=== PATIENT | male | born 1995 | race Two or more races ===

== ENCOUNTER 2019-01-03 08:32 | Emergency (ER) | payer OTHER ==
[2019-01-03 08:44] VITALS: BP 135/79; PULSE 89; TEMP 98; BMI 20.1
[2019-01-03] MEDS ORDERED: CLINDAMYCIN HCL 300 MG CAPSULE PO ONE (08:51)
[2019-01-03] MEDS ORDERED: CLINDAMYCIN HCL 150 MG CAPSULE (FP) ONE (08:52)
--- NOTE | 2019-01-03 09:00 | PDOC ---
History of Present Illness - General Chief Complaint: Abscess Boil Stated Complaint: FEVER Time Seen by Provider: 01/03/19 08:47 History Source: Patient Exam Limitations: Clinical Condition - History of Present Illness Initial Comments: 01/03/19 09:23 Patient with no significant past medical history present with complaint of 3- day history of redness to lateral aspect of left forearm and a bump to back of head. Patient report redness to forearm started as insect bite and skin has been getting right. Patient reports tactile fever. Patient did not take anything for fever. Denies numbness or tingling sensation. Denies any other symptoms Timing/Duration: reports: other (3 days) Past History - Past Medical History Allergies/Adverse Reactions: Allergies Allergy/AdvReac Type Severity Reaction Status Date / Time No Known Allergies Allergy Verified 01/03/19 08:37 Home Medications: Ambulatory Orders Cephalexin Monohydrate [Keflex -] 500 mg PO BID 7 Days #14 capsule 01/03/19 Mupirocin Ointment [Bactroban 2% Ointment -] 1 applic TP BID #1 tube 01/03/19 Sulfamethoxazole/Trimethoprim [Bactrim Ds -] 1 tab PO BID #14 tablet 01/03/19 COPD: No - Immunization History Immunization Up to Date: (Doesn't know) - Psycho Social/Smoking Cessation Hx Smoking Status: No Smoking History: Never smoked Have you smoked in the past 12 months: No Number of Cigarettes Smoked Daily: 0 Hx Alcohol Use: No Drug/Substance Use Hx: No Substance Use Type: None Review of Systems - Review of Systems Able to Perform ROS?: Yes Is the patient limited Irish proficient: No Constitutional: No: Chills, Fever, Malaise HEENTM: No: Symptoms Reported Respiratory: No: Symptoms reported, See HPI, Cough, Orthopnea, Shortness of Breath, SOB with Exertion, SOB at Rest, Stridor, Wheezing, Productive cough, Hemoptysis, Other Cardiac (ROS): No: Symptoms Reported, See HPI, Chest Pain, Edema, Irregular Heart Rate, Lightheadedness, Palpitations, Syncope, Chest Tightness, Other ABD/GI: No: Nausea, Vomiting Musculoskeletal: No: Symptoms Reported Integumentary: Yes: Symptoms Reported, See HPI, Erythema (left forearm redness) , Lumps (back of head) Neurological: No: Symptoms reported, Numbness, Paresthesia, Weakness, Dizziness All Other Systems: Reviewed and Negative *Physical Exam - Vital Signs Last Vital Signs Temp Pulse Resp BP Pulse Ox 98 F 89 18 135/79 100 01/03/19 08:37 01/03/19 08:37 01/03/19 08:37 01/03/19 08:37 01/03/19 08:37 - Physical Exam Comments: 01/03/19 09:26 GENERAL: Well developed, well nourished. Awake and alert. No acute distress. HEENT: 1 cm area of hard induration with vesicles consistent with skin excoriation from shaving to occiput of head. No skin erythema. Normocephalic, atraumatic. PERRLA, EOMI. No conjunctival pallor. Sclera are non-icteric. Moist mucous membranes. Oropharynx is clear. NECK: Supple. Full ROM. PULMONARY: No evidence of respiratory distress. MUSCULOSKELETAL Normal range of motion at all joints. SKIN: Warm and dry. Normal capillary refill. 1 cm area of hard induration with vesicles consistent with skin excoriation from shaving to occiput of head. No skin erythema. 1 mm area of insect bite sera with 3 cm area of surrounding skin erythema consistent with cellulitis to the lateral aspect of left forearm. No open wound or drainage from site. NEUROLOGICAL: Alert, awake, appropriate. Gait is normal without ataxia. PSYCHIATRIC: Cooperative. Good eye contact. Appropriate mood General Appearance: Yes: Nourished, Appropriately Dressed. No: Apparent Distress ED Treatment Course - Medications Given in the ED: ED Medications Discontinued Medications Generic Name Dose Route Start Last Admin Trade Name Alq PRN Reason Stop Dose Admin Clindamycin HCl 300 mg 01/03/19 08:51 01/03/19 08:53 Cleocin - PO 01/03/19 08:52 300 mg ONCE ONE Administration Medical Decision Making - Medical Decision Making 01/03/19 09:24 Patient with no significant past medical history present with complaint of 3- day history of redness to lateral aspect of left forearm and a bump to back of head. Patient report redness to forearm started as insect bite and skin has been getting right. Patient reports tactile fever. Patient did not take anything for fever. Denies numbness or tingling sensation. Denies any other symptoms Exam significant for 1 mm area of hard induration consistent with insect bite with 4 cm area of skin erythema to lateral aspect of left forearm. No drainage from bite site. No streaking of redness up left arm. Single 1 cm hard induration to the left side of occiput with no skin erythema. Sepsis likely cellulitis of left forearm from insect bite with bumps from shaving to occiput. Clindamycin 300 mg p.o. one-time ordered for cellulitis. Patient will be discharged home on Bactrim and Keflex antibiotic for a week with topical Bactroban with advised to follow-up in 2 days for reassessment. Area of cellulitis marked with marking pen. Patient stable for discharge Discharge - Discharge Information Problems reviewed: Yes Clinical Impression/Diagnosis: Cellulitis of left forearm, Bumps on skin Bug bite Qualifiers: Encounter type: initial encounter Qualified Code(s): W57.XXXA - Bitten or stung by nonvenomous insect and other nonvenomous arthropods, initial encounter Condition: Stable Disposition: HOME - Admission No - Additional Discharge Information Prescriptions: Cephalexin Monohydrate [Keflex -] 500 mg PO BID 7 Days #14 capsule Mupirocin Ointment [Bactroban 2% Ointment -] 1 applic TP BID #1 tube Sulfamethoxazole/Trimethoprim [Bactrim Ds -] 1 tab PO BID #14 tablet - Follow up/Referral Referrals: Carline Willard MD [Staff Physician] - - Patient Discharge Instructions Patient Printed Discharge Instructions: DI for Cellulitis -- Adult Additional Instructions: Take prescribed medications as prescribed. Apply prescribed cream to left forearm and back of head twice a day until healed. Come back to ED in 2 days to recheck the skin [place] los medicamentos recetados segn lo recetado. Aplique la crema recetada en el antebrazo prashant y la parte posterior de la china dos veces al da hasta que sane. Regrese a ED en 2 barraza para volver a revisar la piel Print Language: SLOVENIAN - Post Discharge Activity Work/Back to School Note: Back to Work
== END 2019-01-03 09:43 | disposition home or self-care (01) ==
LOC: JERFT 08:32
DX: S50.862A Insect bite (nonvenomous) of left forearm, initial encounter (principal); L03.114 Cellulitis of left upper limb; W57.XXXA Bitten or stung by nonvenomous insect and other nonvenomous arthropods, initial encounter; Y93.89 Activity, other specified; Y92.89 Other specified places as the place of occurrence of the external cause; Y99.8 Other external cause status; L02.811 Cutaneous abscess of head [any part, except face]
CPT/HCPCS: 99282-25

== ENCOUNTER 2019-01-04 09:35 | Inpatient (IN) | payer OTHER ==
[2019-01-04 10:50] LABS: BASO % 0.2 % (0-2.0); EOS % 0.2 % (0-4.5); HEMOGLOBIN 15.9 GM/dL (11.7-16.9); LYMPH % 6.1 % (8-40); MCH 29.2 pg (25.7-33.7); MCHC 33.8 g/dl (32.0-35.9); MEAN CELL VOLUME 86.5 fl (80-96); MEAN PLT VOLUME 9.1 fl (7.5-11.1); MONO % 7.6 % (3.8-10.2); NEUT % 85.9 % (42.8-82.8); PLATELET COUNT 222 K/MM3 (134-434); RBC 5.43 M/mm3 (4.00-5.60); WHITE BLOOD COUNT 14.1 K/mm3 (4.0-10.0)
[2019-01-04] MEDS ORDERED: VANCOMYCIN 1 GM in D5W (PRE-DOCKED) 1,000 MG/250 ML IVPB ONE (10:50)
--- NOTE | 2019-01-04 11:00 | PDOC ---
History of Present Illness - General Chief Complaint: Edema Stated Complaint: RT ARM SWOLLEN, 2nd visit Time Seen by Provider: 01/04/19 09:37 History Source: Patient, Old Records Exam Limitations: No Limitations - History of Present Illness Initial Comments: 01/04/19 10:55 23 yo M w/ no sig pmhx comes in c/o left forearm worsening cellulitis, fever, chills, nausea, loss of appetite. He was in the ED yesterday, was prescribed keflex, bactrim which he has been taking. Last dose 8am today. The redness has gone past the circumscribed area. Also c/o a bump to the back of the head which has not gotten worse, (+) h/o abscesses in the past. Denies h/o diabetes. Past History - Past Medical History Allergies/Adverse Reactions: Allergies Allergy/AdvReac Type Severity Reaction Status Date / Time No Known Allergies Allergy Verified 01/04/19 09:39 Home Medications: Ambulatory Orders Cephalexin Monohydrate [Keflex -] 500 mg PO BID 7 Days #14 capsule 01/03/19 Mupirocin Ointment [Bactroban 2% Ointment -] 1 applic TP BID #1 tube 01/03/19 Sulfamethoxazole/Trimethoprim [Bactrim Ds -] 1 tab PO BID #14 tablet 01/03/19 COPD: No Other medical history: boils - Immunization History Immunization Up to Date: (Doesn't know) - Psycho Social/Smoking Cessation Hx Smoking Status: No Smoking History: Never smoked Have you smoked in the past 12 months: No Number of Cigarettes Smoked Daily: 0 Information on smoking cessation initiated: No Hx Alcohol Use: No Drug/Substance Use Hx: No Substance Use Type: None Review of Systems - Review of Systems Able to Perform ROS?: Yes Constitutional: No: Chills, Fever, Malaise, Night Sweats HEENTM: No: Eye Pain, Recent change in vision, Throat Pain Respiratory: No: Cough, Shortness of Breath Cardiac (ROS): No: Chest Pain, Palpitations, Chest Tightness ABD/GI: Yes: Nausea. No: Diarrhea, Vomiting, Abdominal cramping : No: Dysuria, Hematuria Musculoskeletal: No: Back Pain Integumentary: No: Rash Neurological: No: Headache, Numbness, Dizziness Endocrine: No: Unexplained Weight Loss *Physical Exam - Vital Signs Last Vital Signs Temp Pulse Resp BP Pulse Ox 98.3 F 89 19 133/88 99 01/04/19 09:37 01/04/19 09:37 01/04/19 09:37 01/04/19 09:37 01/04/19 09:37 - Physical Exam General Appearance: Yes: Nourished. No: Apparent Distress HEENT: positive: GRABIEL, Normal ENT Inspection, Normal Voice. negative: Pale Conjunctivae, Scleral Icterus (R), Scleral Icterus (L) Neck: positive: Supple. negative: Decreased range of motion, Tender midline Respiratory/Chest: positive: Lungs Clear, Normal Breath Sounds. negative: Respiratory Distress, Accessory Muscle Use Cardiovascular: positive: Regular Rhythm, Regular Rate Gastrointestinal/Abdominal: positive: Normal Bowel Sounds, Soft. negative: Tender Musculoskeletal: positive: Normal Inspection. negative: CVA Tenderness, Decreased Range of Motion Extremity: positive: Normal Capillary Refill, Normal Inspection, Normal Range of Motion, Other (L forearm with a cm area of induration and tenderness with a central head, no fluctuance, (+)surrounding erythema and swelling extending beyond [place] up to the antecubital fossa and down to the proximal palm. No streaking beyond elbow. FROM elbow and wrist with 5/5 strength). negative: Pedal Edema Integumentary: positive: Normal Color, Dry. negative: Jaundice, Rash Neurologic: positive: Fully Oriented, Alert, Normal Mood/Affect ED Treatment Course - LABORATORY CBC & Chemistry Diagram: 01/04/19 10:35 01/04/19 10:35 - ADDITIONAL ORDERS Additional order review: 01/04/19 10:35 RBC 5.43 MCV 86.5 MCHC 33.8 RDW 13.0 MPV 9.1 Neutrophils % 85.9 H Lymphocytes % 6.1 L D Monocytes % 7.6 D Eosinophils % 0.2 D Basophils % 0.2 Medical Decision Making - Medical Decision Making 01/04/19 11:15 23 yo M w/ cellulitis, fever, chills, loss of appetite. On antibiotics for 24 hrs, worsening. Will line and lab, give vancomycin and reassess 01/04/19 16:42 Pt admited for IV antibotics. Resident aware Discharge - Discharge Information Problems reviewed: Yes Clinical Impression/Diagnosis: Cellulitis Qualifiers: Site of cellulitis: extremity Site of cellulitis of extremity: upper extremity Laterality: left Qualified Code(s): L03.114 - Cellulitis of left upper limb - Follow up/Referral - Patient Discharge Instructions - Post Discharge Activity
[2019-01-04] MEDS ORDERED: VANCOMYCIN 1 GRAM (PRE-DOCKED) 1,000 MG/250 ML BAG IVPB ONE (11:02)
[2019-01-04 11:22] LABS: ALBUMIN 4.7 g/dl (3.4-5.0); BILIRUBIN,TOTAL 1.3 mg/dL (0.2-1); CREATININE 0.9 mg/dL (0.55-1.3); POTASSIUM 3.6 mmol/L (3.5-5.1); TOT PROT 8.1 g/dl (6.4-8.2)
[2019-01-04] MEDS ORDERED: ACETAMINOPHEN 325 MG TABLET (FP) PO PRN (14:49)
--- NOTE | 2019-01-04 14:51 | HP ---
<JoselofrenchGume - Last Filed: 01/04/19 15:28> CHIEF COMPLAINT: Arm Pain and redness PCP: None HISTORY OF PRESENT ILLNESS: 23yo M with no medical history who reports having worsening arm pain and redness. Pt was previously here in ED for same complaint one day prior and was given PO Keflex and Bactrim for his cellulitis. Pt's cellulitis began 2-3 days ago after he noticed bite dalton on his arm and his head. Pt reports the bites did not itch him and he continued his daily routines. Around yesterday he noticed increased redness with no fevers, arm pain, or worsening range of motion. He visited the ER for further evaluation and when sent home they marked his rash and told him if it got worse to come back. Pt noticed this morning he had some arm pain and noticed the redness became more severe. Pt previously had an abscess formation about [address] from a cut he sustained, however was never told he had any specific bacteria like MRSA or Pseudomonas. Pt denies any diabetes or becoming sick frequently as a child. Pt denies any fever/chills, cough, rhinorrhea, constitutional symptoms, shortness of breath, palpitations, abdominal pain, dysuria, polyuria, diarrhea, weakness, tingling/numbness. Recent Travel: Travels to [facility] (hasn't been in 6 mo) PAST MEDICAL HISTORY: None PAST SURGICAL HISTORY: None Social History: Smoking: Denies Alcohol: Denies Drugs: Denies Family history: Noncontributory; no hx of immunodeficiencies Allergies No Known Allergies Allergy (Verified 01/04/19 09:39) HOME MEDICATIONS: Home Medications Medication Instructions Recorded Cephalexin Monohydrate [Keflex -] 500 mg PO BID 7 Days #14 capsule 01/03/19 Mupirocin Ointment [Bactroban 2% 1 applic TP BID #1 tube 01/03/19 Ointment -] Sulfamethoxazole/Trimethoprim 1 tab PO BID #14 tablet 01/03/19 [Bactrim Ds -] REVIEW OF SYSTEMS As per HPI PHYSICAL EXAMINATION Vital Signs - 24 hr 01/04/19 01/04/19 09:37 13:50 Temperature 98.3 F 97.6 F Pulse Rate 89 Pulse Rate [ 85 Right Radial] Respiratory 19 18 Rate Blood Pressure 133/88 Blood Pressure 129/78 [Left Arm] O2 Sat by Pulse 99 98 Oximetry (%) GENERAL: NAD, awake, alert, and fully oriented HEAD: no hair infestation, singular wheal without any TTP, surrounding erythema on posterior head, no structural abnormalities. EENT: EOM, MARIBELL, MMM, no buccal mucosa abnoramlities Neck: No lymphadenopathy LUNGS: CTA bilaterally. No wheezes, and no crackles. No accessory muscle use. HEART: RRR, normal S1 and S2 without murmur ABDOMEN: Soft, NT/ND, normoactive bowel sounds, no guarding, no rebound MUSCULOSKELETAL: No CVA tenderness. UPPER EXTREMITIES: 2+ radial pulses b/l, cap refill <2sec, Nate test normal, extensive erythema from L wrist to elbow 1 in from being circumferential. TTP + , area of induration around original wheal without any fluctuance appreciated. compartments of arm soft. ROM of wrist and elbow normal. LOWER EXTREMITIES: No lower extremity edema, no calf tenderness NEUROLOGICAL: Nonfocal. Normal speech. Normal gait. PSYCHIATRIC: Cooperative. Good eye contact. Appropriate mood and affect. SKIN: Warm, dry, see EXT exam and HEAD above. No insect bite dalton inbetween hands, tattoos (distant history) without any puncture dalton hidden Laboratory Results - last 24 hr 01/04/19 01/04/19 01/04/19 10:35 10:35 10:36 WBC 14.1 H RBC 5.43 Hgb 15.9 Hct 47.0 MCV 86.5 MCH 29.2 MCHC 33.8 RDW 13.0 Plt Count 222 MPV 9.1 Absolute Neuts (auto) 12.1 H Neutrophils % 85.9 H Lymphocytes % 6.1 L D Monocytes % 7.6 D Eosinophils % 0.2 D Basophils % 0.2 Nucleated RBC % 0 Sodium 138 Potassium 3.6 Chloride 100 Carbon Dioxide 30 Anion Gap 8 BUN 6.0 L Creatinine 0.9 Est GFR (CKD-EPI)AfAm 137.10 Est GFR (CKD-EPI)NonAf 118.29 Random Glucose 94 Lactic Acid 1.2 Calcium 10.0 Total Bilirubin 1.3 H AST 15 ALT 14 Alkaline Phosphatase 84 Total Protein 8.1 Albumin 4.7 ASSESSMENT/PLAN: Extensive cellulitis with failure of outpatient therapy Leukocytosis R/o abscess formation Hyperbilirubinemia --Vancomycin given in ED --Add Zosyn 3.375mg q8h for broad coverage --CT Upper extremity with contrast to r/o abscess and any fascial involvement --ID consultation ordered --Marv line of current cellulitis to see worsening vs. improvement --Tylenol PRN for any pain or fever --HIV 4th gen ordered, ESR, CRP can be added on --A1c ordered for tomorrow's labs --Will fractionate bilirubin --If primarily direct will have to RUQ U/S for CBD abnormalities --Utox ordered FEN: Fluids: PO encouraged; bolus if needed Electrolyte abnormalities: None Nutrition: Regular diet PPX: DVT - Early ambulation GI - Not indicated Dispo: Admit M/S Case discussed with Dr. Sandra Alcazar, DO - IM PGY-3 Visit type - Emergency Visit Emergency Visit: Yes ED Registration Date: 01/04/19 Care time: The patient presented to the Emergency Department on the above date and was hospitalized for further evaluation of their emergent condition. - New Patient This patient is new to me today: Yes Date on this admission: 01/04/19 - Critical Care Critical Care patient: No ATTENDING PHYSICIAN STATEMENT I saw and evaluated the patient. I reviewed the resident's note and discussed the case with the resident. I agree with the resident's findings and plan as documented. SUBJECTIVE: OBJECTIVE: ASSESSMENT AND PLAN: <Antonio Flores - Last Filed: 01/06/19 11:11> CHIEF COMPLAINT: Cellulitis Seen and examined with resident; agree with historical information and findings as documented and personally verified flowers features; in addition personally reviewed all labs and diagnostics and VS and discussed at length with resident team and consulting services. He has cellulitis with history of bug bite with ? tick exposure but no s/s RMSF , Lyme, etc. Stable and not toxic appearing with purulent cellulitis without features of nec fasc or compartment syndrome. Imaging pending (CT) with sgy and ID consults pending. Appreciate expert management. Further managment per resident note. Adamently denies IVDU, risk factors for MRSA, or prior infections No family history of immunocompromise, etc. HOME MEDICATIONS: Home Medications Medication Instructions Recorded Cephalexin Monohydrate [Keflex -] 500 mg PO BID 7 Days #14 capsule 01/03/19 Mupirocin Ointment [Bactroban 2% 1 applic TP BID #1 tube 01/03/19 Ointment -] Sulfamethoxazole/Trimethoprim 1 tab PO BID #14 tablet 01/03/19 [Bactrim Ds -] REVIEW OF SYSTEMS 10 sys ROS done and negative aside from HPI PHYSICAL EXAMINATION VS reviewed per resident note and EMR GENERAL: Awake, alert, and fully oriented, in no acute distress. HEAD: Normal with no signs of trauma. EYES: Pupils equal, round and reactive to light, extraocular movements intact, sclera anicteric, conjunctiva clear. No lid lag. EARS, NOSE, THROAT: Ears normal, nares patent, oropharynx clear without exudates. Moist mucous membranes. NECK: Normal range of motion, supple without lymphadenopathy, JVD, or masses. LUNGS: Breath sounds equal, clear to auscultation bilaterally. No wheezes, and no crackles. No accessory muscle use. HEART: Regular rate and rhythm, normal S1 and S2 without murmur, rub or gallop. ABDOMEN: Soft, nontender, not distended, normoactive bowel sounds, no guarding, no rebound, no masses. No hepatomegaly or splenomegaly. MUSCULOSKELETAL: Normal range of motion at all joints. No bony deformities or tenderness. No CVA tenderness. UPPER EXTREMITIES: 2+ pulses, warm, well-perfused. No cyanosis. No clubbing. No peripheral edema. SKIN: Warm, dry, normal turgor, no rashes or lesions noted, normal capillary refill. Cellulitic changes with dime to quarter sized area of fluctuance with surrounding cellulitis; dermarcated with surgical marker. Painful to palpation with no drainage. No target lesions, etc. Imaging pending Micro Pending Denies MRSA hx, no IVDU ASSESSMENT/PLAN: Patient presents with cellulitis secondary to likely bug bite; followed by ID and sgy. Micro pending; on broad coverage. Problems include: -Acute cellulitis (Failed OP tx with indicated abx with speading redness and worsening pain with leukocytosis evident) -Mild hyperbilirubinemia (monitor CMP, fractionate and check US if increases) Full Code ATTENDING PHYSICIAN STATEMENT I saw and evaluated the patient. I reviewed the resident's note and discussed the case with the resident. I agree with the resident's findings and plan as documented. SUBJECTIVE: OBJECTIVE: ASSESSMENT AND PLAN:
[2019-01-04] MEDS ORDERED: PIPERACILLIN/TAZOB 3.375 GM 3.375 GM in DEXTROSE 5%-WATER - 50 ML IVPB SCH (18:00)
[2019-01-04] MEDS ORDERED: DEXTROSE 5%-WATER - 50 ML IVPB ONE (18:04)
[2019-01-04] MEDS ORDERED: PIPERACILLIN/TAZOBACTAM 3.375 GM VIAL IVPB ONE (18:04)
[2019-01-04 18:28] VITALS: BMI 19.7
[2019-01-04] MEDS: PIPERACILLIN/TAZOB 3.375 GM 3.375 GM in DEXTROSE 5%-WATER - 50 ML IVPB SCH (18:53)
[2019-01-04 21:17] LABS: COCAINE, UR NEGATIVE ng/ml (CUTOFF=300); METHADONE, UR NEGATIVE ng/ml (CUTOFF=300); OPIATES, URI NEGATIVE ng/ml (CUTOFF=300); PHENCYCLIDINE,URINE NEGATIVE ng/ml (CUTOFF=25); URINE AMPHETAMINES NEGATIVE ng/ml (CUTOFF=500); URINE BARBITURATES NEGATIVE ng/ml (CUTOFF=200); URINE BENZODIAZEPINES NEGATIVE ng/ml (CUTOFF=200)
[2019-01-05] MEDS ORDERED: DEXTROSE 5%-WATER - 50 ML IVPB ONE ×3 (01:09→17:58)
[2019-01-05] MEDS ORDERED: PIPERACILLIN/TAZOBACTAM 3.375 GM VIAL IVPB ONE ×3 (01:09→17:58)
[2019-01-05] MEDS: PIPERACILLIN/TAZOB 3.375 GM 3.375 GM in DEXTROSE 5%-WATER - 50 ML IVPB SCH ×4 (01:57→18:05)
--- NOTE | 2019-01-05 07:34 | CONSULT ---
- Consultation REQUESTING PROVIDER: CONSULT REQUEST: We have been asked to surgically evaluate this patient for left arm abscess. PCP:Antonio Flores MD HISTORY OF PRESENT ILLNESS: CHIEF COMPLAINT: Arm Pain and redness PCP: None HISTORY OF PRESENT ILLNESS: 23yo M with no medical history who reports having worsening arm pain and redness. Pt was previously here in ED for same complaint one day prior and was given PO Keflex and Bactrim for his cellulitis. Pt's cellulitis began 2-3 days ago after he noticed what looked like insect bite dalton on his arm and his head. Patient states hes had this before and they have resolved on their own. Pt reports the bites did not itch but he experiences generalized itching frequently. On 01/03/19 (Two days ago) he noticed increased redness with no fevers, arm pain, or worsening range of motion. He visited the ER for further evaluation and when sent home they marked his rash and told him if it got worse to come back. Pt noticed yesterday morning he had some arm pain and noticed the redness became more severe. Pt previously had an abscess formation about [address] from a cut he sustained, however was never told he had any specific bacteria like MRSA or Pseudomonas. Pt denies any diabetes or becoming sick frequently as a child. Pt denies any fever/chills, cough, rhinorrhea, constitutional symptoms, shortness of breath, palpitations, abdominal pain, dysuria, polyuria, diarrhea, weakness, tingling/numbness. Recent Travel: Travels to [facility] (hasn't been in 6 mo) PAST MEDICAL HISTORY: None PAST SURGICAL HISTORY: None Social History: Smoking: Denies Alcohol: Denies Drugs: Denies Family history: Noncontributory; no hx of immunodeficiencies Allergies No Known Allergies Allergy (Verified 01/04/19 09:39) HOME MEDICATIONS: Home Medications Medication Instructions Recorded Cephalexin Monohydrate [Keflex -] 500 mg PO BID 7 Days #14 capsule 01/03/19 Mupirocin Ointment [Bactroban 2% 1 applic TP BID #1 tube 01/03/19 Ointment -] Sulfamethoxazole/Trimethoprim 1 tab PO BID #14 tablet 01/03/19 [Bactrim Ds -] REVIEW OF SYSTEMS As per HPI PHYSICAL EXAMINATION Vital Signs Temp 98.5 F 01/05/19 05:00 Pulse 83 01/05/19 05:00 Resp 20 01/05/19 05:00 BP 126/68 01/05/19 05:00 Pulse Ox 100 01/04/19 21:00 Intake & Output 01/04/19 01/04/19 01/05/19 11:59 23:59 11:59 Intake Total 500 50 Balance 500 50 Weight 145 lb 122 lb 4 oz Intake: IVPB 50 50 Oral 450 Other: Voiding Method Toilet # Unmeasured Voids Void 1 Height 5 ft 6 in 5 ft 6 in Body Mass Index (BMI) 23.3 19.7 Weight Measurement Method Standing Scale Weight Measurement Method Est/Stated by Patient CBC, BMP 01/04/19 10:35 01/04/19 10:35 GENERAL: NAD, awake, alert, and fully oriented HEAD: no hair infestation, singular wheal without any TTP, surrounding erythema at left occipital area, no d/c, no structural abnormalities. LUNGS: No auditory wheezes, unlabored resp on RA, No accessory muscle use. MUSCULOSKELETAL: moving all extremities without limitation. UPPER EXTREMITIES: 2+ radial pulses b/l, cap refill <2sec, extensive erythema from L wrist to elbow 1 in from being circumferential. TTP +, area of induration around original wheal on volar surface at mid forearm, without any fluctuance appreciated, no d/c. small scab at center. compartments of arm soft. ROM of wrist and elbow normal. LOWER EXTREMITIES: No lower extremity edema, NEUROLOGICAL: Nonfocal. Normal speech. Normal gait. PSYCHIATRIC: Cooperative. Good eye contact. Appropriate mood and affect. SKIN: Warm, dry, see EXT exam and HEAD above. No insect bite dalton inbetween hands, tattoos (distant history) without any puncture dalton hidden left arm CT @[id number] subcutaneous collection seen Problem List - Problems (1) Cellulitis of left forearm Code(s): L03.114 - CELLULITIS OF LEFT UPPER LIMB (2) Abscess Assessment/Plan: 23 yo male with no significant medical history and left arm abscess. -IV ABX per ID, f/u HIV labs -Warm compress to left forearm -pain control -Surgery to follow Code(s): L02.91 - CUTANEOUS ABSCESS, UNSPECIFIED
--- NOTE | 2019-01-05 08:19 | PN ---
Progress Note (short form) - Note Progress Note: HPI: Pt with improvement of arm today. Pain resolved and ROM remains intact. Pt wondering about total timing of estimated hospital stay. Vital Signs Temperature 98.5 F 01/05/19 05:00 Pulse Rate 83 01/05/19 05:00 Respiratory Rate 20 01/05/19 05:00 Blood Pressure 126/68 01/05/19 05:00 O2 Sat by Pulse Oximetry (%) 100 01/04/19 21:00 PE: GENERAL: NAD, awake, alert, and fully oriented HEENT: NC/AT, [place] MMM LUNGS: CTA bilaterally. No wheezes, and no crackles. No accessory muscle use. HEART: RRR, normal S1 and S2 without murmur ABDOMEN: Soft, NT/ND, normoactive bowel sounds, no guarding, no rebound UPPER EXTREMITIES: 2+ radial pulses b/l, erythema receeding from original drawn line, compartments soft and area of induration decreased. minimal TTP at site of original bite. LOWER EXTREMITIES: No lower extremity edema, no calf tenderness PSYCHIATRIC: Cooperative. Good eye contact. Appropriate mood and affect. SKIN: Warm, dry, see EXT exam and HEAD above. CBC, BMP 01/05/19 07:25 01/05/19 07:25 Active Medications Acetaminophen (Tylenol -) 650 mg PO Q4H PRN PRN Reason: FEVER Last Admin: 01/05/19 10:40 Dose: 650 mg Piperacillin Sod/Tazobactam (Sod 3.375 gm/ Dextrose) 50 mls @ 100 mls/hr IVPB Q8H-IV BROOK; Protocol Vancomycin HCl (Vancomycin (Pre-Docked)) 1,000 mg in 250 mls @ 166.667 mls/hr IVPB ONCE ONE; Protocol Stop: 01/05/19 11:29 Last Admin: 01/05/19 09:52 Dose: 166.667 mls/hr Vancomycin HCl 1,250 mg/ (Dextrose) 250 mls @ 250 mls/2 hr IVPB Q24H BROOK; Protocol Piperacillin Sod/Tazobactam (Sod 3.375 gm/ Dextrose) 50 mls @ 100 mls/hr IVPB Q8H-IV BROOK; Protocol Assessment and Plan: Extensive cellulitis with failure of outpatient therapy Leukocytosis R/o abscess formation Hyperbilirubinemia --Zosyn 3.375mg q8h for broad coverage --Vancomycin one time today 1gm (2nd dose; trough prior to 4th) --CT Upper extremity reviewed with abscess noted --Surgery consulted for possible drainage --Appreciate recommendations --ID consultation ordered --Tylenol PRN for any pain or fever --HIV 4th gen pending, minimal elevations in ESR and CRP --A1c 5.0% --Fractionated bilirubin mostly indirect --Possible Gilbert's syndrome however long-term repeat follow-up on outpatient --Utox negative FEN: Fluids: PO encouraged; bolus if needed Electrolyte abnormalities: None Nutrition: Regular diet PPX: DVT - Early ambulation GI - Not indicated Dispo: Continue monitoring; f/u HIV Case discussed with Dr. Sandra Alcazar, DO - IM PGY-3 <Gume Alcazar - Last Filed: 01/05/19 11:19> - Note Progress Note: CHIEF COMPLAINT: Cellulitis Seen and examined with resident; agree with historical information and findings as documented and personally verified flowers features; in addition personally reviewed all labs and diagnostics and VS and discussed at length with resident team and consulting services. Cellulitis improved with respect to margins and pain is decreased; in good spirits with all questions answered. NO procedure per sgy; ID recommends to continue current abx and monitor. HOME MEDICATIONS: Home Medications Medication Instructions Recorded Cephalexin Monohydrate [Keflex -] 500 mg PO BID 7 Days #14 capsule 01/03/19 Mupirocin Ointment [Bactroban 2% 1 applic TP BID #1 tube 01/03/19 Ointment -] Sulfamethoxazole/Trimethoprim 1 tab PO BID #14 tablet 01/03/19 [Bactrim Ds -] REVIEW OF SYSTEMS 10 sys ROS done and negative aside from HPI PHYSICAL EXAMINATION VS reviewed per resident note and EMR GENERAL: Awake, alert, and fully oriented, in no acute distress. HEAD: Normal with no signs of trauma. EYES: Pupils equal, round and reactive to light, extraocular movements intact, sclera anicteric, conjunctiva clear. No lid lag. EARS, NOSE, THROAT: Ears normal, nares patent, oropharynx clear without exudates. Moist mucous membranes. NECK: Normal range of motion, supple without lymphadenopathy, JVD, or masses. LUNGS: Breath sounds equal, clear to auscultation bilaterally. No wheezes, and no crackles. No accessory muscle use. HEART: Regular rate and rhythm, normal S1 and S2 without murmur, rub or gallop. ABDOMEN: Soft, nontender, not distended, normoactive bowel sounds, no guarding, no rebound, no masses. No hepatomegaly or splenomegaly. MUSCULOSKELETAL: Normal range of motion at all joints. No bony deformities or tenderness. No CVA tenderness. UPPER EXTREMITIES: 2+ pulses, warm, well-perfused. No cyanosis. No clubbing. No peripheral edema. SKIN: Warm, dry, normal turgor, no rashes or lesions noted, normal capillary refill. Cellulitic changes with dime to quarter sized area of fluctuance with surrounding cellulitis; dermarcated with surgical marker. Painful to palpation with no drainage. No target lesions, etc. Improved from prior encounter. ASSESSMENT/PLAN: Patient presents with cellulitis secondary to likely bug bite; followed by ID and sgy. Micro pending; on broad coverage. Problems include: -Acute cellulitis with abscess formation [3x2x1] (Failed OP tx with indicated abx with speading redness and worsening pain with leukocytosis evident) -Mild hyperbilirubinemia (monitor CMP, fractionate and check US if increases) Full Code <Antonio Flores - Last Filed: 01/06/19 11:13>
[2019-01-05 08:37] LABS: BASO % 0.2 % (0-2.0); EOS % 1.9 % (0-4.5); HEMATOCRIT 42.2 % (35.4-49); HEMOGLOBIN 14.5 GM/dL (11.7-16.9); LYMPH % 7.6 % (8-40); MCH 29.5 pg (25.7-33.7); MCHC 34.3 g/dl (32.0-35.9); MEAN PLT VOLUME 9.3 fl (7.5-11.1); MONO % 10.1 % (3.8-10.2); NEUT % 80.2 % (42.8-82.8); PLATELET COUNT 223 K/MM3 (134-434); RDW 12.7 % (11.9-15.9)
[2019-01-05 09:11] LABS: BLOOD UREA NITROGEN 8.8 mg/dL (7-18); CALCIUM 9.5 mg/dL (8.5-10.1); CREATININE 0.9 mg/dL (0.55-1.3); POTASSIUM 3.9 mmol/L (3.5-5.1)
[2019-01-05] MEDS ORDERED: VANCOMYCIN 1 GRAM (PRE-DOCKED) 1,000 MG/250 ML BAG IVPB ONE (10:00)
[2019-01-05 10:45] LABS: BILIRUBIN,DIRECT 0.4 mg/dL (0.0-0.2); BILIRUBIN,TOTAL 1.5 mg/dL (0.2-1); TOT PROT 7.2 g/dl (6.4-8.2)
--- NOTE | 2019-01-05 10:53 | CON.ID ---
Consult Consult Specialty:: infectious diseases Referred by:: Chris Reason for Consultation:: cellulitis of the left arm and boil on the scalp - History of Present Illness Chief Complaint: cellulits of the left arm History of Present Illness: 23yo M with no medical history who reports having worsening arm pain and redness. Pt was previously here in ED for same complaint one day prior and was given PO Keflex and Bactrim for his cellulitis. Pt's cellulitis began 2-3 days ago after he noticed bite dalton on his arm and his head. Pt reports the bites did not itch him and he continued his daily routines. Around yesterday he noticed increased redness with no fevers, arm pain, or worsening range of motion. He visited the ER for further evaluation and when sent home they marked his rash and told him if it got worse to come back. Pt noticed this morning he had some arm pain and noticed the redness became more severe. Pt previously had an abscess formation about [address] from a cut he sustained, patient was started on abx - History Source History Provided By: Patient, Family Member Limitations to Obtaining History: Language Barrier - Alcohol/Substance Use Hx Alcohol Use: No - Smoking History Smoking history: Never smoked Have you smoked in the past 12 months: No Aproximately how many cigarettes per day: 0 If you are a former smoker, when did you quit?: 0 Home Medications - Allergies Allergies/Adverse Reactions: Allergies Allergy/AdvReac Type Severity Reaction Status Date / Time No Known Allergies Allergy Verified 01/04/19 09:39 - Home Medications Home Medications: Ambulatory Orders Cephalexin Monohydrate [Keflex -] 500 mg PO BID 7 Days #14 capsule 01/03/19 Mupirocin Ointment [Bactroban 2% Ointment -] 1 applic TP BID #1 tube 01/03/19 Sulfamethoxazole/Trimethoprim [Bactrim Ds -] 1 tab PO BID #14 tablet 01/03/19 Review of Systems - Review of Systems Constitutional: reports: No Symptoms Eyes: reports: No Symptoms HENT: reports: No Symptoms Neck: reports: No Symptoms Cardiovascular: reports: No Symptoms Respiratory: reports: No Symptoms Gastrointestinal: reports: No Symptoms Integumentary: reports: Erythema, Other (swelling of the left arm) Neurological: reports: No Symptoms Endocrine: reports: No Symptoms Hematology/Lymphatic: reports: No Symptoms Psychiatric: reports: No Symptoms Physical Exam Vital Signs: Vital Signs Temperature 98.5 F 01/05/19 05:00 Pulse Rate 83 01/05/19 05:00 Respiratory Rate 20 01/05/19 05:00 Blood Pressure 126/68 01/05/19 05:00 O2 Sat by Pulse Oximetry (%) 100 01/04/19 21:00 Constitutional: Yes: Well Nourished, Calm Cardiovascular: Yes: S1, S2 Respiratory: Yes: Regular, CTA Bilaterally Gastrointestinal: Yes: Normal Bowel Sounds, Soft Extremities: Yes: Erythema (improving) Wound/Incision: Yes: Other Neurological: Yes: Alert, Oriented Psychiatric: Yes: Alert, Oriented Labs: CBC, BMP 01/05/19 07:25 01/05/19 07:25 Imaging - Results Cat Scan: Report Reviewed, Image Reviewed Assessment/Plan patient coming with swelling and cellulitis of the hand and looks like patient has abscess forming and about to rupture i would look into what is the source of bite will start him on broad spectrum might need to drain ther abscess rest as per the team should work him for lymes also
[2019-01-05] MEDS ORDERED: PT OWN MED DRAWER 7, Y5N ONE (17:57)
--- NOTE | 2019-01-05 18:36 | CONSULT ---
Consult Consult Specialty:: Surgery Reason for Consultation:: Swelling on left forearm for 4 days. - History of Present Illness Chief Complaint: C/o Pain and swelling on the dirsum of hgis lefct forearm for the past 4 days. He denies any insect bit. History of Present Illness: Swelling left forearm x 4 days. - History Source History Provided By: Patient - Alcohol/Substance Use Hx Alcohol Use: No - Smoking History Smoking history: Never smoked Have you smoked in the past 12 months: No Aproximately how many cigarettes per day: 0 If you are a former smoker, when did you quit?: 0 Home Medications - Allergies Allergies/Adverse Reactions: Allergies Allergy/AdvReac Type Severity Reaction Status Date / Time No Known Allergies Allergy Verified 01/04/19 09:39 - Home Medications Home Medications: Ambulatory Orders Cephalexin Monohydrate [Keflex -] 500 mg PO BID 7 Days #14 capsule 01/03/19 Mupirocin Ointment [Bactroban 2% Ointment -] 1 applic TP BID #1 tube 01/03/19 Sulfamethoxazole/Trimethoprim [Bactrim Ds -] 1 tab PO BID #14 tablet 01/03/19 Physical Exam Vital Signs: Vital Signs Temperature 97.9 F 01/05/19 15:10 Pulse Rate 73 01/05/19 15:10 Respiratory Rate 20 01/05/19 15:10 Blood Pressure 115/58 L 01/05/19 15:10 O2 Sat by Pulse Oximetry (%) 100 01/05/19 09:00 Extremities: Yes: Other (Swelling , and redness on the dorsum of his left forearm , for about 4 cms, with redness and a punctum. There is no purulent drainage.) Labs: CBC, BMP 01/05/19 07:25 01/05/19 07:25 Problem List - Problems (1) Cellulitis of left forearm Code(s): L03.114 - CELLULITIS OF LEFT UPPER LIMB (2) Bug bite Code(s): W57.XXXA - BIT/STUNG BY NONVENOM INSECT & OTH NONVENOM ARTHROPODS, INIT Qualifiers: Encounter type: initial encounter Qualified Code(s): W57.XXXA - Bitten or stung by nonvenomous insect and other nonvenomous arthropods, initial encounter (3) Abscess Code(s): L02.91 - CUTANEOUS ABSCESS, UNSPECIFIED Assessment/Plan Cellulitis/ abscess left forearm , ? s/p insect bite/ Plan : antibiotics, warm soaks. Will follow
[2019-01-06] MEDS ORDERED: DEXTROSE 5%-WATER - 50 ML IVPB ONE ×2 (01:41→09:39)
[2019-01-06] MEDS ORDERED: PIPERACILLIN/TAZOBACTAM 3.375 GM VIAL IVPB ONE ×2 (01:41→09:39)
[2019-01-06] MEDS: PIPERACILLIN/TAZOB 3.375 GM 3.375 GM in DEXTROSE 5%-WATER - 50 ML IVPB SCH ×2 (02:14→09:49)
[2019-01-06 08:15] LABS: HEMATOCRIT 41.8 % (35.4-49); HEMOGLOBIN 14.5 GM/dL (11.7-16.9); MCH 29.6 pg (25.7-33.7); MCHC 34.6 g/dl (32.0-35.9); MEAN CELL VOLUME 85.6 fl (80-96); PLATELET COUNT 236 K/MM3 (134-434); RBC 4.89 M/mm3 (4.00-5.60); RDW 12.7 % (11.9-15.9)
[2019-01-06 09:23] LABS: BLOOD UREA NITROGEN 8.3 mg/dL (7-18); CALCIUM 9.3 mg/dL (8.5-10.1); CREATININE 0.9 mg/dL (0.55-1.3); POTASSIUM 4.2 mmol/L (3.5-5.1)
[2019-01-06] MEDS ORDERED: VANCOMYCIN HCL 1,250 MG in DEXTROSE 5%-WATER - 250 ML IVPB SCH (10:00)
[2019-01-06] MEDS ORDERED: LIDOCAINE HCL 1%, 10 MG/ML (20ML VIAL) ONE (11:34)
--- NOTE | 2019-01-06 11:56 | PN ---
Progress Note, Physician - Current Medication List Current Medications: Active Medications Acetaminophen (Tylenol -) 650 mg PO Q4H PRN PRN Reason: FEVER Last Admin: 01/05/19 10:40 Dose: 650 mg Clindamycin HCl (Cleocin -) 450 mg PO Q6HPO BROOK Stop: 01/13/19 12:00 - Objective Vital Signs: Vital Signs Temperature 98.6 F 01/06/19 07:00 Pulse Rate 72 01/06/19 07:00 Respiratory Rate 20 01/06/19 07:00 Blood Pressure 113/60 01/06/19 07:00 O2 Sat by Pulse Oximetry (%) 100 01/05/19 21:00 Labs: CBC, BMP 01/06/19 07:30 01/06/19 07:30 Problem List - Problems (1) Cellulitis of left forearm Code(s): L03.114 - CELLULITIS OF LEFT UPPER LIMB (2) Bug bite Code(s): W57.XXXA - BIT/STUNG BY NONVENOM INSECT & OTH NONVENOM ARTHROPODS, INIT Qualifiers: Encounter type: initial encounter Qualified Code(s): W57.XXXA - Bitten or stung by nonvenomous insect and other nonvenomous arthropods, initial encounter (3) Abscess Code(s): L02.91 - CUTANEOUS ABSCESS, UNSPECIFIED Assessment/Plan Surgery : Left forearm , cellulitis and infection in left forearm , now localised . Soft in the cemter , abscess opened with aspiration and needle. About 5 ccs of pus evacuated and dressing applied. Pus sent for culture and antibiotic sensitivity. Abscess left forearm . Continue antibiotics, Can be discharged home. He has a sebaceous cyst in left occipital area of scalp. Measures about 2 cm. in diameter , not tender. Abdominal ultrasound ordered . Liver enzymes are normal.
--- NOTE | 2019-01-06 11:59 | PN ---
Progress Note, Physician History of Present Illness: stable no new issues abscess drained - Current Medication List Current Medications: Active Medications Acetaminophen (Tylenol -) 650 mg PO Q4H PRN PRN Reason: FEVER Last Admin: 01/05/19 10:40 Dose: 650 mg Clindamycin HCl (Cleocin -) 450 mg PO Q6HPO BROOK Stop: 01/13/19 12:00 - Objective Vital Signs: Vital Signs Temperature 98.6 F 01/06/19 07:00 Pulse Rate 72 01/06/19 07:00 Respiratory Rate 20 01/06/19 07:00 Blood Pressure 113/60 01/06/19 07:00 O2 Sat by Pulse Oximetry (%) 100 01/05/19 21:00 Constitutional: Yes: No Distress, Calm Cardiovascular: Yes: S1, S2 Respiratory: Yes: Regular, CTA Bilaterally Gastrointestinal: Yes: Normal Bowel Sounds, Soft Musculoskeletal: Yes: WNL Extremities: Yes: Other (cellulitis of the hand) Wound/Incision: Yes: Dressing Dry and Intact Neurological: Yes: Alert, Oriented Psychiatric: Yes: Alert, Oriented Labs: CBC, BMP 01/06/19 07:30 01/06/19 07:30 Assessment/Plan patient coming with swelling and cellulitis of the hand and looks like patient has abscess forming and about to rupture i would look into what is the source of bite will start him on broad spectrum might need to drain ther abscess rest as per the team should work him for lymes also
[2019-01-06] MEDS ORDERED: CLINDAMYCIN HCL 150 MG CAPSULE (FP) PO SCH (12:00)
--- NOTE | 2019-01-06 12:02 | PROC ---
Procedure Note Procedure: Evacuation of abscess left forearm. Site : Left forearm. Consent obtained . Patient was explained in [place] , about having a collection of pus in his left forearm, that needs to be drained. The site was cofirmed with the patient and nurse. The left forearm was cleansed with alcohol. A no. 21 gauge needle was introduced , at the area of the punctum, and maximum fluctuance . 2-5 ml of pus and blood was evacuated. A swab was sent for culture and antibiotic sensitivity . Dressing applied. Can be followed as outpatient . Discharge with antibiotics
[2019-01-06 15:15] VITALS: BP 137/82; PULSE 81; TEMP 99
--- NOTE | 2019-01-06 16:08 | DS ---
Physical Exam: SUBJECTIVE: Patient seen and examined OBJECTIVE: Vital Signs Period Temp Pulse Resp BP Sys/Olsen Pulse Ox Last 24 Hr 98.0 F-99.0 F 58-81 18-20 113-137/60-82 99-100 PHYSICAL EXAM GENERAL: The patient is awake, alert, and fully oriented, in no acute distress. HEAD: Normal with no signs of trauma. EYES: PERRL, extraocular movements intact, sclera anicteric, conjunctiva clear. ENT: Ears normal, nares patent, oropharynx clear without exudates, moist mucous membranes. NECK: Trachea midline, full range of motion, supple. LUNGS: Breath sounds equal, clear to auscultation bilaterally, no wheezes, no crackles, no accessory muscle use. HEART: Regular rate and rhythm, S1, S2 without murmur, rub or gallop. ABDOMEN: Soft, nontender, nondistended, normoactive bowel sounds, no guarding, no rebound, no hepatosplenomegaly, no masses. EXTREMITIES: 2+ pulses, warm, well-perfused, no edema. NEUROLOGICAL: Cranial nerves II through XII grossly intact. Normal speech, gait not observed. PSYCH: Normal mood, normal affect. SKIN: Warm, dry, normal turgor, no rashes or lesions noted. LABS Laboratory Results - last 24 hr 01/04/19 01/06/19 01/06/19 16:51 07:30 07:30 WBC 8.0 RBC 4.89 Hgb 14.5 Hct 41.8 MCV 85.6 MCH 29.6 MCHC 34.6 RDW 12.7 Plt Count 236 MPV 9.0 Sodium 139 Potassium 4.2 Chloride 102 Carbon Dioxide 30 Anion Gap 8 BUN 8.3 Creatinine 0.9 Est GFR (CKD-EPI)AfAm 137.10 Est GFR (CKD-EPI)NonAf 118.29 Random Glucose 87 Calcium 9.3 LD Total 151 HIV 1&2 Ag/Ab, 4th Gen Non reactive HOSPITAL COURSE: Date of Admission:01/04/19 Date of Discharge: 01/06/19 <Gume Alcazar - Last Filed: 01/06/19 16:08> Physical Exam: SUBJECTIVE: Patient seen and examined OBJECTIVE: Vital Signs Period Temp Pulse Resp BP Sys/Olsen Pulse Ox Last 24 Hr 98.0 F-99.0 F 58-81 18-20 113-137/60-82 99-100 PHYSICAL EXAM GENERAL: The patient is awake, alert, and fully oriented, in no acute distress. HEAD: Normal with no signs of trauma. EYES: PERRL, extraocular movements intact, sclera anicteric, conjunctiva clear. ENT: Ears normal, nares patent, oropharynx clear without exudates, moist mucous membranes. NECK: Trachea midline, full range of motion, supple. LUNGS: Breath sounds equal, clear to auscultation bilaterally, no wheezes, no crackles, no accessory muscle use. HEART: Regular rate and rhythm, S1, S2 without murmur, rub or gallop. ABDOMEN: Soft, nontender, nondistended, normoactive bowel sounds, no guarding, no rebound, no hepatosplenomegaly, no masses. EXTREMITIES: 2+ pulses, warm, well-perfused, no edema. NEUROLOGICAL: Cranial nerves II through XII grossly intact. Normal speech, gait not observed. PSYCH: Normal mood, normal affect. SKIN: Warm, dry, normal turgor, no rashes or lesions noted. LABS Laboratory Results - last 24 hr 01/04/19 01/06/19 01/06/19 16:51 07:30 07:30 WBC 8.0 RBC 4.89 Hgb 14.5 Hct 41.8 MCV 85.6 MCH 29.6 MCHC 34.6 RDW 12.7 Plt Count 236 MPV 9.0 Sodium 139 Potassium 4.2 Chloride 102 Carbon Dioxide 30 Anion Gap 8 BUN 8.3 Creatinine 0.9 Est GFR (CKD-EPI)AfAm 137.10 Est GFR (CKD-EPI)NonAf 118.29 Random Glucose 87 Calcium 9.3 LD Total 151 HIV 1&2 Ag/Ab, 4th Gen Non reactive HOSPITAL COURSE: Date of Admission:01/04/19 Date of Discharge: 01/06/19 <Antonio Flores - Last Filed: 01/06/19 16:43> Discharge Summary Problems reviewed: Yes Reason For Visit: CELLULITIS OF LEFT FOREARM Current Active Problems Abscess (Acute) Cellulitis (Acute) - Home Medications Comprehensive Discharge Medication List: Ambulatory Orders Clindamycin [Cleocin -] 450 mg PO Q6HPO 10 Days #40 capsule 01/06/19 <Gume Alcazar - Last Filed: 01/06/19 16:08> Current Active Problems Abscess (Acute) Cellulitis (Acute) - Home Medications Comprehensive Discharge Medication List: Ambulatory Orders Clindamycin [Cleocin -] 450 mg PO Q6HPO 10 Days #40 capsule 01/06/19 <Antonio Flores - Last Filed: 01/06/19 16:43> Condition: Good - Instructions Diet, Activity, Other Instructions: You were seen in the hospital for cellulitis and are being discharged home with close followup with your: -PCP (Please see Resident clinic at [facility] in 3-5 days to followup culture results and monitor treatment progression) You are also noted to have a sebaceous cyst on your scalp which should improve with warm compresses and time. You can take PRN Ibuprofen for the pain You were noted to have elevated bilirubin with no kaz transaminitis or pain; it was relatively stable. An ultrasound was obtained. You should followup repeat liver function tests when you go to your primary care clinic Resume your regular diet and activity Keep inflamed area clean and dry Return to ER/Call Physician if worsneing pain, worsening wound appearance, or if you experience abdominal pain or jaundice. Referrals: Slava Massey MD [Staff Physician] - (3-5 days with resident clinic Followup culture results) Jocelyne Vera MD [Staff Physician] - 1 Week Disposition: HOME ATTENDING PHYSICIAN STATEMENT I saw and evaluated the patient. I reviewed the resident's note and discussed the case with the resident. I agree with the resident's findings and plan as documented. SUBJECTIVE: OBJECTIVE: ASSESSMENT AND PLAN: <Gume Alcazar - Last Filed: 01/06/19 16:08> ATTENDING PHYSICIAN STATEMENT I saw and evaluated the patient. I reviewed the resident's note and discussed the case with the resident. I agree with the resident's findings and plan as documented. SUBJECTIVE: OBJECTIVE: ASSESSMENT AND PLAN: <Antonio Flores - Last Filed: 01/06/19 16:43>
[2019-01-09 18:08] LABS: BABESIA MICROTI ANTIBODY IGG <1:10 (Neg:<1:10); BABESIA MICROTI ANTIBODY IGM <1:10 (Neg:<1:10)
== END 2019-01-06 17:31 | disposition home or self-care (01) | DRG 383 ==
LOC: JER 09:35 → JERBED 13:57 → J5S 16:52
PROVIDERS: ADMIT Internal Medicine; ATTEND Internal Medicine
PROC: 0X993ZZ Drainage of Left Upper Arm, Percutaneous Approach (ICD-10-PCS; principal; 2019-01-06)
DX: L03.114 Cellulitis of left upper limb (principal); E80.6 Other disorders of bilirubin metabolism; W57.XXXA Bitten or stung by nonvenomous insect and other nonvenomous arthropods, initial encounter; Y93.89 Activity, other specified; Y92.89 Other specified places as the place of occurrence of the external cause; Y99.8 Other external cause status
CPT/HCPCS: 36415; 73201-TC-RT; 76705-TC; 80048; 80053; 80076; 80307; 82977; 83036; 83605; 83615; 85025; 85027; 85651; 86140; 86618; 86753; 87040; 87070; 87186; 87205; 87389; 99283-25

== ENCOUNTER 2019-11-06 11:24 | Emergency (ER) | payer OTHER ==
[2019-11-06 11:35] VITALS: BP 131/83; PULSE 72; TEMP 98.2; BMI 20.1
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
[2019-11-06] MEDS ORDERED: ACETAMINOPHEN 500 MG TABLET (FP) PO ONE (12:32)
[2019-11-06] MEDS ORDERED: ACETAMINOPHEN 325 MG TABLET (FP) ONE (12:43)
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
== END 2019-11-06 15:00 | disposition home or self-care (01) ==
LOC: JER 11:24
DX: S06.0X0A Concussion without loss of consciousness, initial encounter (principal); S00.83XA Contusion of other part of head, initial encounter
CPT/HCPCS: 70450-TC; 70486-TC; 99284-25